=== PATIENT | female | born 1970 | race Caucasian/White ===

== ENCOUNTER → 2019-06-12 | Outpatient (CLI) | payer BC ==
--- NOTE | 2019-06-12 16:38 | PCVCIMAG ---
APPROVED REPORT Study performed: 06/12/2019 10:30:21 Exam: Stress Echocardiogram Indication: Syncope, Palpitations, Abnormal EKG, Chest pressure Patient Location: Echo lab Stress Nurse: Mi Florez RN Room #: 2 Status: routine Ht: 5 ft 5 in Medical History Medical History: HTN, tachycardia, near syncope Cardiac Risk Factors: HTN, FHX of CAD Previous Cardiac Procedures: none Exercise History: Physically active Procedure The patient underwent an Exercise Stress Test using the Chandra Protocol. Blood pressure, heart rate, and EKG were monitored. An Echocardiogram was performed by master fire control technician in four stages in quad fashion. At peak stress, four selected images were obtained and placed side by side with resting images for comparison. Stress Test Details Stress Test: Exercise stress testing was performed using a Chandra protocol. HR Resting HR: 84 bpmMax Heart Rate (APMHR): 170 bpm Max HR Achieved: 184 bpmTarget HR (85% APMHR): 144 bpm % of APMHR: 108 Recovery HR: 114 bpm HR response to stress: Normal HR response to stress BP Resting BP: 130/90 mmHg Max BP: 164/80 mmHg Recovery BP: 124/74 mmHg BP response to stress: Normal blood pressure response to stress. ECG Resting ECG: Sinus Rhythm, nonspecific ST-T abnormalities Stress ECG: Sinus Rhythm, NSSTT changes ST Change: Non-ischemic Maximum ST Deviation: -1.15 mm Arrhythmia: very rare PVCs,PACs Recovery ECG: Sinus Rhythm Recovery ST Change: Non-ischemic Recovery ST Deviation: -0.65 mm Recovery Arrhythmia: None Clinical Reason for Termination: Maximal effort Stress Symptoms: fatigue,chest pressure unchanged throughout test Exercise duration: 9 min 56 sec Highest Stage Achieved: Stage 4: 4.2 mph at 16% grade. Exercise capacity: 13.1 METs Overall Exercise Capacity for Age: Good Scale: Active Angina Score: None No complications. Stress ECG Conclusion Espinal Treadmill Score is 14.8 which is Low risk. Pre-Stress Echo The resting Echocardiogram showed normal left ventricular contractility with an estimated Ejection Fraction of about 55-60%. Normal wall motion in all segments on baseline images. Post-Stress Echo The stress Echocardiogram showed normal left ventricular contractility with an estimated Ejection Fraction of about 65-70%. Normal augmentation of wall motion in all segments on post stress images. Clinical No clinical or ECG evidence for ischemia. Conclusion Clinical Response: Non-ischemic Exercise Capacity: Average Stress ECG Response: Non-ischemic Stress Echo Images: Non-ischemic No clinical, EKG or echocardiographic evidence for ischemia. No echocardiographic evidence for exercise induced ischemia. Normal stress echocardiogram with maximal exercise stress. Normal color doppler. No regurgitation or stenosis present on pulmonic, mitral and aortic valves.Mild regurgitation of the Tricuspid valve with normal PA pressures. <Conclusion> No clinical, EKG or echocardiographic evidence for ischemia. No echocardiographic evidence for exercise induced ischemia. Normal stress echocardiogram with maximal exercise stress. Normal color doppler. No regurgitation or stenosis present on pulmonic, mitral and aortic valves.Mild regurgitation of the Tricuspid valve with normal PA pressures.
== END | disposition home or self-care (01) ==
LOC: PCVCIMAG 10:19
PROVIDERS: ATTEND Internal Medicine Cardiovascular Disease
DX: I36.1 Nonrheumatic tricuspid (valve) insufficiency (principal); R94.31 Abnormal electrocardiogram [ECG] [EKG]; I15.9 Secondary hypertension, unspecified; R07.9 Chest pain, unspecified; R55 Syncope and collapse; Z82.49 Family history of ischemic heart disease and other diseases of the circulatory system; Z88.1 Allergy status to other antibiotic agents; Z88.8 Allergy status to other drugs, medicaments and biological substances
CPT/HCPCS: 93325; 93351